=== PATIENT | female | born 1945 | race Caucasian/White ===

== ENCOUNTER 2020-07-11 11:04 | Emergency (ER) | payer OTHER ==
[2020-07-11 11:16] VITALS: BMI 23.6
[2020-07-11 12:12] LABS: BASO % 0.5 % (0-2.0); HEMATOCRIT 37.3 % (32.4-45.2); HEMOGLOBIN 12.4 GM/dL (10.7-15.3); LYMPH % 18.7 % (8-40); MCH 29.4 pg (25.7-33.7); MCHC 33.4 g/dl (32.0-36.0); MEAN CELL VOLUME 88.1 fl (80-96); MONO % 8.7 % (3.8-10.2); NEUT % 72.1 % (42.8-82.8); PLATELET COUNT 223 K/MM3 (134-434); RBC 4.23 M/mm3 (3.60-5.2); RDW 14.4 % (11.6-15.6)
[2020-07-11 12:30] LABS: POTASSIUM 4.8 mmol/L (3.5-5.1)
[2020-07-11 12:32] LABS: CALCIUM 8.8 mg/dL (8.5-10.1)
[2020-07-11 12:33] LABS: ALBUMIN 3.6 g/dl (3.4-5.0); BLOOD UREA NITROGEN 10.2 mg/dL (7-18)
[2020-07-11 12:37] LABS: BILIRUBIN,TOTAL 0.3 mg/dL (0.2-1); TOT PROT 7.4 g/dl (6.4-8.2)
[2020-07-11] MEDS ORDERED: BAMLANIVIMAB 700 MG in SODIUM CHLORIDE 180 ML IVPB ONE (13:45)
[2020-07-11 15:53] VITALS: BP 111/59; PULSE 96; TEMP 100.1
== END 2020-07-11 17:20 | disposition home or self-care (01) ==
LOC: JER 11:04
DX: Z11.52 Encounter for screening for COVID-19 (principal)
CPT/HCPCS: 36415; 80053; 85025; 93005; 93010; 99284-25; M0239; Q0239